=== PATIENT | male | born 1960 | race Caucasian/White ===

== ENCOUNTER 2017-07-21 08:13 | Day surgery (SDC) | payer BC ==
[~2017-07-21 08:13] MED LIST: Buffered Lidocaine 0.9% SYRIN* 5 ML/SYR SYRINGE INTRADERM ONE
[2017-07-21] MEDS ORDERED: Clindamycin 900 MG IVPREMIX(* 900 MG/50 ML SDV IV ONE (08:30)
[2017-07-21] MEDS ORDERED: Bupivacaine 0.25% SDV* 30 ML ONE (10:14)
[2017-07-21] MEDS ORDERED: fentaNYL* 50 MCG/ML 2 ML VIAL (100 MCG VIAL) ONE (10:31)
[2017-07-21] MEDS ORDERED: Midazolam* 1 MG/ML 2 ML VIAL (2 MG) ONE (10:31)
[2017-07-21] MEDS ORDERED: Lidocaine 0.5%* 50 ML SDV ONE (10:31)
[2017-07-21] MEDS ORDERED: Propofol* 10 MG/ML 20 ML BTL IV PUSH ONE (10:46)
[2017-07-21 12:09] VITALS: BP 114/80
--- NOTE | 2017-07-21 22:23 | OP ---
DATE OF OPERATION: 07/21/17 - [facility] DATE OF : 60 SURGEON: Dave Phillips MD WHEEL ASSEMBLER: TESSA Coon. An clerical administrative assistant was needed for the cyst removal portion of the procedure to aid in retraction. ANESTHESIOLOGIST: Jack Burnett MD ANESTHESIA: [place] block with MAC. PRE-OP DIAGNOSES: 1. Left carpal tunnel syndrome. 2. Left volar wrist ganglion cyst. POST-OP DIAGNOSES: 1. Left carpal tunnel syndrome. 2. Left volar wrist ganglion cyst. OPERATIVE PROCEDURE: 1. Left volar wrist ganglion cyst excision. 2. Left carpal tunnel release. INDICATIONS: Blu has a very large left volar wrist ganglion cyst. Additionally, he has had progressive carpal tunnel syndrome. We talked about risks and benefits. He wanted to proceed. ESTIMATED BLOOD LOSS: 5 mL. COMPLICATIONS: None. FINDINGS: A volar wrist ganglion was emanating from the volar wrist capsule, quite ulnar, just anterior to the radial ulnar joint. DESCRIPTION OF PROCEDURE: Blu was seen in the preoperative holding area. The correct site, side, and procedure were identified. We came back to the operating room. The [place] block was performed. The arm was prepped and draped in the usual fashion and a time-out was performed. I began by making a 2- to 3-cm incision in the standard location for an open carpal tunnel release. Dissection was carried down through the subcutaneous tissue and palmar fascia. The transverse carpal ligament was released just off the radial aspect of the hook of the [place]. The release was completed distally and proximally released the subcutaneous tissue. The fascia retracted distally and ulnarly with a Gerhard retractor. Then, under direct visualization, the remainder of the transverse carpal ligament was released to the level several centimeters proximal to wrist flexion crease. I tried the decompression. Everything was very nicely decompressed. We irrigated out the wound. Skin was closed with 3-0 Monocryl suture. I then made a separate curvilinear incision over the volar wrist ganglion cyst. The dissection was carried down. The cyst was identified. I came proximal and identified the radial artery prior to it running adjacent to the cyst. I delineated the margin of the cyst and dissected out the radial artery and retracted this radially. The radial artery was protected throughout the case. I then was able to track the cyst back down to the radial carpal joint. It came deep to the tendons all the way back ulnar, it came off really the ulnar side of the radial carpal joint. I tracked all this back down, I amputated the cyst at its stalk where it came off the joint. The volar wrist capsule was cauterized. Cyst was handed off as a specimen. I then irrigated out the wound. Hemostasis was obtained with the Bovie. The wound was closed with 3-0 Monocryl sutures and Steri-Strips. Wounds were dressed with 4x4's, sterile Webril, and a volar cockup wrist splint was applied. Tourniquet was deflated and the hand pinked up immediately. He was then taken to the recovery room in stable condition. [id number]/CPS #: [id number] STEPHANIE
== END 2017-07-21 12:45 | disposition home or self-care (01) ==
LOC: OREAST 08:13
PROVIDERS: ATTEND Orthopaedic Surgery Hand Surgery
DX: M67.432 Ganglion, left wrist (principal); G56.02 Carpal tunnel syndrome, left upper limb; E11.9 Type 2 diabetes mellitus without complications; Z79.84 Long term (current) use of oral hypoglycemic drugs; Z87.891 Personal history of nicotine dependence; I21.4 Non-ST elevation (NSTEMI) myocardial infarction; Z95.5 Presence of coronary angioplasty implant and graft; R06.02 Shortness of breath; R07.89 Other chest pain; I25.10 Atherosclerotic heart disease of native coronary artery without angina pectoris; E78.5 Hyperlipidemia, unspecified; M19.90 Unspecified osteoarthritis, unspecified site
CPT/HCPCS: 88304; J2250; J2704; J3010

== ENCOUNTER 2017-07-29 14:55 | Emergency (ER) | payer BC ==
[2017-07-29 18:34] LABS: Hematocrit 39 % (42-52); Hemoglobin 12.9 g/dl (14.0-18.0); Mean Corpuscular HGB Conc 33 g/dl (31-36); Mean Corpuscular Hemoglobin 29 pg (27-31); Mean Corpuscular Volume 87 fL (80-94); Mean Platelet Volume 8 um3 (7.4-10.4); Red Blood Count 4.51 10^6/ul (4.0-5.4); Red Cell Distribution Width 14 % (10.5-15); White Blood Count 11.9 10^3/ul (3.5-10.8)
[2017-07-29 18:53] LABS: Albumin 3.9 g/dL (3.2-5.2); BUN/Creatinine Ratio 27.9 (8-20); Calcium 9.5 mg/dL (8.6-10.3); EGFR African American 94.7 (>60); EGFR Non-African American 73.6 (>60); Potassium 4.4 mmol/L (3.5-5.0); Total Bilirubin 0.3 mg/dL (0.2-1.0); Total Protein 6.9 g/dL (6.4-8.9)
[2017-07-29] MEDS ORDERED: NS 0.9% 1000 ML* 1,000 ML IV ONE (19:34)
[2017-07-29 19:37] LABS: Urine Bacteria Absent (Absent)
[2017-07-29] MEDS ORDERED: Iodixanol* (CONTRAST) 320 MG/ML 100 ML SDV IV ONE (19:44)
--- NOTE | 2017-07-29 20:34 | RAD ---
CLINICAL HISTORY: Hematuria, right lower quadrant tenderness COMPARISON: None TECHNIQUE: Multiple contiguous axial CT scans were obtained of the abdomen and pelvis after the administration of intravenous contrast. Coronal and sagittal multiplanar reformations are submitted for review. Oral contrast was not administered. Delayed images were obtained through the abdomen and pelvis. FINDINGS: LUNG BASES: The lung bases are clear. LIVER: The liver is normal in shape, size, contour, and attenuation. BILE DUCTS: There is no intrahepatic or extrahepatic biliary dilatation. GALLBLADDER: The gallbladder is incompletely distended but is grossly normal. PANCREAS: The pancreas is normal, without mass or ductal dilatation. SPLEEN: Normal in size and appearance. UPPER GI TRACT: Evaluation of the gastrointestinal tract is limited by incomplete gastric distention. The upper GI tract is unremarkable. SMALL BOWEL AND MESENTERY: The small bowel is normal in contour, course, and caliber. There is no obstruction or dilatation. COLON: The colon is normal in contour, course, caliber. There is no pericolonic inflammatory change. There is a tubular, vermiform, hollow viscus that is blind ending, and originates from the cecum, consistent with a normal appendix. There is no periappendiceal inflammatory change. This is best seen on axial image 36 through 46. ADRENALS: There is a 2 cm right adrenal nodule measuring 80 Hounsfield units in attenuation. KIDNEYS: The kidneys are normal in shape, size, contour, and axis. There is no hydronephrosis or nephrolithiasis. BLADDER: There is large amount of high attenuation material within the lumen of the bladder. PELVIC ORGANS: The prostate is diffusely enlarged. The seminal vesicles are symmetric. AORTA: The aorta is normal. IVC: Unremarkable LYMPH NODES: There is no lymphadenopathy by size criteria. ABDOMINAL WALL: There is a small fat-containing of focal hernia. BONES AND SOFT TISSUES: Degenerative changes are noted OTHER: None IMPRESSION: 1. THERE IS HIGH ATTENUATION MATERIAL WITHIN THE LUMEN OF THE BLADDER, LIKELY REPRESENTING INTRALUMINAL THROMBUS WITHIN THE BLADDER GIVEN HISTORY OF HEMATURIA. 2. MILDLY ENLARGED PROSTATE. 3. 2 CM RIGHT ADRENAL NODULE. IMAGING FEATURES ARE INDETERMINATE. IN THE ABSENCE OF A HISTORY OF MALIGNANCY, RECOMMEND 12 MONTH FOLLOW-UP IMAGING WITH ADRENAL PROTOCOL MULTIPHASE CONTRAST ENHANCED CT OR ADRENAL PROTOCOL MRI OF THE ABDOMEN.
--- NOTE | 2017-07-29 21:52 | ED ---
Stephan Gregory Stephanie, scribed for Uli De La Cruz on 07/29/17 at 1952 . GI/ HPI - HPI Summary HPI Summary: The pt is a 57 y/o M presenting to the ED with c/o hematuria. He noticed a small amount of blood in his urine this morning and it has gotten progressively worse throughout the day. Symptoms include pain during urination. The pt denies fever and SOB. The pt reports being on blood thinners and baby aspirin. He reports an episode of hematuria 2 weeks ago. - History of Current Complaint Chief Complaint: EDUrogenitalProblems Time Seen by Provider: 07/29/17 19:17 Stated Complaint: BLOOD IN URINE/BLOOD THINNERS Hx Obtained From: Patient, Family/Digital Sales Director Onset/Duration: Started Hours Ago - Began this morning., Still Present Timing: Constant Pain Intensity: 2 Location of Pain: RLQ Associated Signs and Symptoms: Positive: Hematuria, Dysuria, Other: - Negative: SOB. Negative: Fever Aggravating Factor(s): Urination Alleviating Factor(s): Nothing - Additional Pertinent History Primary Care Physician: [id number] - Allergy/Home Medications Allergies/Adverse Reactions: Allergies Allergy/AdvReac Type Severity Reaction Status Date / Time Penicillins Allergy Hives Verified 07/21/17 08:40 PMH/Surg Hx/FS Hx/Imm Hx Previously Healthy: No Endocrine/Hematology History: Reports: Hx Diabetes Cardiovascular History: Reports: Hx Angina, Hx Coronary Artery Disease, Hx Hypercholesterolemia, Hx Myocardial Infarction, Other Cardiovascular Problems/ Disorders - STENTS Denies: Hx Hypertension, Hx Pacemaker/ICD, Hx Valvular Heart Disease Respiratory History: Denies: Hx Asthma, Hx Chronic Obstructive Pulmonary Disease (COPD), Hx Pneumonia GI History: Reports: Hx Gastroesophageal Reflux Disease - WITH SPICY FOODS History: Reports: Other Problems/Disorders - HEMATURIA Denies: Hx Renal Disease Musculoskeletal History: Reports: Hx Arthritis - OSTEOARTHRITIS, Hx Back Problems - lower back pain, Hx Osteoporosis Sensory History: Reports: Hx Contacts or Glasses - GLASSES BRING DAY OF SURGERY Denies: Hx Hearing Aid Opthamlomology History: Reports: Hx Contacts or Glasses - GLASSES BRING DAY OF SURGERY Psychiatric History: Reports: Hx Depression - OCASSIONALLY Denies: Hx Panic Disorder - Surgical History Surgery Procedure, Year, and Place: CARDIAC STENTS 2016 Hx Anesthesia Reactions: No - Immunization History Date of Tetanus Vaccine: UTD Date of Influenza Vaccine: NO Infectious Disease History: No Infectious Disease History: Denies: Hx of Known/Suspected MRSA, Hx Shingles, Hx Tuberculosis, History Other Infectious Disease, Traveled Outside the [place] in Last 30 Days - Social History Alcohol Use: Rare Alcohol Amount: GLASS OF WINE Hx Substance Use: No Substance Use Type: Reports: None Hx Tobacco Use: Yes Smoking Status (MU): Former Smoker Type: Cigarettes Amount Used/How Often: 1PPD Have You Smoked in the Last Year: No Review of Systems Negative: Fever Negative: Shortness Of Breath Positive: Abdominal Pain Positive: dysuria, hematuria All Other Systems Reviewed And Are Negative: Yes Physical Exam - Summary Physical Exam Summary: Appearance: Well appearing, no pain distress Skin: warm, dry, reflects adequate perfusion Head/face: normal Eyes: EOMI, NILE ENT: normal Neck: supple, non-tender Respiratory: CTA, breath sounds present Cardiovascular: RRR, pulses symmetrical Abdomen: mild tenderness in RLQ. Gross hematuria. Bowel: present Musculoskeletal: normal, strength/ROM intact Neuro: normal, sensory motor intact, A&Ox3 Triage Information Reviewed: Yes Vital Signs On Initial Exam: Initial Vitals Temp Pulse Resp BP Pulse Ox 97.4 F 74 19 124/85 99 07/29/17 14:57 07/29/17 14:57 07/29/17 14:57 07/29/17 14:57 07/29/17 14:57 Vital Signs Reviewed: Yes - [place] Coma Scale Coma Scale Total: 15 Diagnostics - Vital Signs Vital Signs Temp Pulse Resp BP Pulse Ox 07/29/17 14:57 97.4 F 74 19 124/85 99 - Laboratory Lab Results: Lab Results 07/29/17 07/29/17 07/29/17 Range/Units 18:25 18:25 18:25 WBC 11.9 H (3.5-10.8) 10^3/ul RBC 4.51 (4.0-5.4) 10^6/ul Hgb 12.9 L (14.0-18.0) g/dl Hct 39 L (42-52) % MCV 87 (80-94) fL MCH 29 (27-31) pg MCHC 33 (31-36) g/dl RDW 14 (10.5-15) % Plt Count 257 (150-450) 10^3/ul MPV 8 (7.4-10.4) um3 Neut % (Auto) 64.4 (38-83) % Lymph % (Auto) 25.9 (25-47) % [place] % (Auto) 7.4 (1-9) % Eos % (Auto) 1.6 (0-6) % Baso % (Auto) 0.7 (0-2) % Absolute Neuts (auto) 7.6 (1.5-7.7) 10^3/ul Absolute Lymphs (auto) 3.1 (1.0-4.8) 10^3/ul Absolute Monos (auto) 0.9 H (0-0.8) 10^3/ul Absolute Eos (auto) 0.2 (0-0.6) 10^3/ul Absolute Basos (auto) 0.1 (0-0.2) 10^3/ul Absolute Nucleated RBC 0.01 10^3/ul Nucleated RBC % 0.1 INR (Anticoag Therapy) 0.85 (0.77-1.02) APTT 30.7 (26.0-36.3) seconds Sodium 136 (133-145) mmol/L Potassium 4.4 (3.5-5.0) mmol/L Chloride 102 (101-111) mmol/L Carbon Dioxide 27 (22-32) mmol/L Anion Gap 7 (2-11) mmol/L BUN 29 H (6-24) mg/dL Creatinine 1.04 (0.67-1.17) mg/dL Est GFR ( Amer) 94.7 (>60) Est GFR (Non-Af Amer) 73.6 (>60) BUN/Creatinine Ratio 27.9 H (8-20) Glucose 214 H (70-100) mg/dL Calcium 9.5 (8.6-10.3) mg/dL Total Bilirubin 0.30 (0.2-1.0) mg/dL AST 23 (13-39) U/L ALT 40 (7-52) U/L Alkaline Phosphatase 76 (34-104) U/L Total Protein 6.9 (6.4-8.9) g/dL Albumin 3.9 (3.2-5.2) g/dL Globulin 3.0 (2-4) g/dL Albumin/Globulin Ratio 1.3 (1-3) Urine Color Urine Appearance Urine pH Ur Specific [place] Urine Protein Urine Ketones Urine Blood Urine Nitrate Urine Bilirubin Urine Urobilinogen Ur Leukocyte Esterase Urine WBC (Auto) (Absent) Urine RBC (Auto) (Absent) Urine Bacteria (Absent) Urine Glucose Urine Ascorbic Acid 07/29/17 Range/Units 19:20 WBC (3.5-10.8) 10^3/ul RBC (4.0-5.4) 10^6/ul Hgb (14.0-18.0) g/dl Hct (42-52) % MCV (80-94) fL MCH (27-31) pg MCHC (31-36) g/dl RDW (10.5-15) % Plt Count (150-450) 10^3/ul MPV (7.4-10.4) um3 Neut % (Auto) (38-83) % Lymph % (Auto) (25-47) % [place] % (Auto) (1-9) % Eos % (Auto) (0-6) % Baso % (Auto) (0-2) % Absolute Neuts (auto) (1.5-7.7) 10^3/ul Absolute Lymphs (auto) (1.0-4.8) 10^3/ul Absolute Monos (auto) (0-0.8) 10^3/ul Absolute Eos (auto) (0-0.6) 10^3/ul Absolute Basos (auto) (0-0.2) 10^3/ul Absolute Nucleated RBC 10^3/ul Nucleated RBC % INR (Anticoag Therapy) (0.77-1.02) APTT (26.0-36.3) seconds Sodium (133-145) mmol/L Potassium (3.5-5.0) mmol/L Chloride (101-111) mmol/L Carbon Dioxide (22-32) mmol/L Anion Gap (2-11) mmol/L BUN (6-24) mg/dL Creatinine (0.67-1.17) mg/dL Est GFR ( Amer) (>60) Est GFR (Non-Af Amer) (>60) BUN/Creatinine Ratio (8-20) Glucose (70-100) mg/dL Calcium (8.6-10.3) mg/dL Total Bilirubin (0.2-1.0) mg/dL AST (13-39) U/L ALT (7-52) U/L Alkaline Phosphatase (34-104) U/L Total Protein (6.4-8.9) g/dL Albumin (3.2-5.2) g/dL Globulin (2-4) g/dL Albumin/Globulin Ratio (1-3) Urine Color Red A Urine Appearance Turbid Urine pH TNP Ur Specific [place] TNP Urine Protein TNP Urine Ketones TNP Urine Blood TNP Urine Nitrate TNP Urine Bilirubin TNP Urine Urobilinogen TNP Ur Leukocyte Esterase TNP Urine WBC (Auto) Trace(0-5/hpf) (Absent) Urine RBC (Auto) 3+(>10/hpf) H (Absent) Urine Bacteria Absent (Absent) Urine Glucose TNP Urine Ascorbic Acid TNP Result Diagrams: 07/29/17 18:25 07/29/17 18:25 Lab Statement: Any lab studies that have been ordered have been reviewed, and results considered in the medical decision making process. - CT ABD/PELVIS CT Interpretation: Positive (See Comments) - 1. THERE IS HIGH ATTENUATION MATERIAL WITHIN THE LUMEN OF THE BLADDER, LIKELY REPRESENTING INTRALUMINAL THROMBUS WITHIN THE BLADDER GIVEN HISTORY OF HEMATURIA. 2. MILDLY ENLARGED PROSTATE. 3. 2 CM RIGHT ADRENAL NODULE. IMAGING FEATURES ARE INDETERMINATE. IN THE ABSENCE OF A HISTORY OF MALIGNANCY, RECOMMEND 12 MONTH FOLLOW-UP IMAGING WITH ADRENAL PROTOCOL MULTIPHASE CONTRAST ENHANCED CT OR ADRENAL PROTOCOL MRI OF THE ABDOMEN. CT Interpretation Completed By: Ailyn GUZMAN Course/Dx - Course Course Of Treatment: The pt is a 57 y/o M presenting to the ED with c/o hematuria. Symptoms include pain during urination. The pt reports being on blood thinners and baby aspirin. He reports an episode of hematuria 2 weeks ago. Pt will be transfered to [facility] due to no urologist available [place] [facility] [place] The pt is diagnosed with gross hematuria. - Diagnoses Differential Diagnoses - Male: Diverticulitis, Pyelonephritis, Renal Calculi, Renal Colic, Urinary Tract Infection Provider Diagnoses: Gross hematuria - Physician Notifications Instructed by Provider To: Transfer Reason For Transfer: Specialty available [place] [facility] [place] therapy techn[place]. Discharge - Discharge Plan Condition: Fair Disposition: TRANSFER TO [facility] ([facility]) Discharge Disposition Comment: Pt will be transfered to [facility]. Referrals: Marlyn Chilel MD [Primary Care Provider] - The documentation as recorded by the scribe, Stephan,Shira accurately reflects the service I personally performed and the decisions made by me, Uli De La Cruz.
[2017-07-29 22:04] VITALS: BP 124/72
--- OUTSIDE RECORDS SUMMARY | 2017-08-01 09:25 | XMS REPORT | Clinical Summary ---
:1960 Author Organization [place] [facility] Address [address] [place] [address] Phone Allergies, Adverse Reactions, Alerts Allergy Name Reaction Description Start Date Severity Status Provider PENICILLIN rash Critical Active KAYLA HURLEY MD Conditions or Problems Problem Name Problem Onset Status Entry Provider Comment Standard Annotate Code Date Date Description Overweight 278.02 Active ROLANDA Overweight 04/17 04/17 BRITTANIE MARI HEAD CORRECTION OFFICER Osteopenia 733.90 Active ROLANDA Disorder of bone 05/13 05/13 BRITTANIE MARI and cartilage, HEAD CORRECTION OFFICER unspecified Hyperlipidemia 272.2 Active KAYLA Mixed mixed 10/19 JUSTEN hyperlipidemia MEI KUO Low back pain, 724.2 Active KAYLA Lumbago chronic 09/15 09/16 JUSTEN HURLEY MD Hyperglycemia 250.00 Active Mela Stone 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 09/02 09/02 PROCEDURE TECH mellitus without mellitus, type mention of II complication, type II or unspecified type, not stated as uncontrolled Other specified 716.96 Active KAYLA Arthropathy arthritis, 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 JUSTEN unspecified, knee MEI KUO involving lower leg Hematuria, gross 599.7 Active KAYLA Hematuria 04/30 09/08 JUSTEN HURLEY MD CAD 414.00 Active KAYLA Coronary 10/19 10/19 JUSTEN atherosclerosis MEI KUO of unspecified type of vessel, [place] or graft Ganglion cyst of 727.41 Active KAYLA Ganglion of left wrist JUSTEN joint MEI KUO Biceps 726.12 Active KAYLA Bicipital tendinitis, JUSTEN tenosynovitis bilateral MEI KUO Medication List Medication Instructions Start Stop Generic Name NDC Status Provider Patient Date Date Instruction IBUPROFEN 800 1 by mouth IBUPROFEN 12246869 Active KAYLA MG ORAL every 8 hours 04/17 540 JUSTEN TABLET as needed MEI KUO HYDROCODONE-A 1 - 2 By HYDROCODONE- 02421758 Active KAYLA CETAMINOPHEN Mouth every 4 04/17 ACETAMINOPHE 301 JUSTEN 5-325 MG ORAL - 6 hours as N MEI KUO TABLET needed for pain MDD: 6 CALCIUM 600+D 1 By Mouth CALCIUM 87188644 Active KAYLA 600-400 Twice a Day 05/13 CARBONATE- 722 JUSTEN MG-UNIT ORAL TAMIN D MEI KUO TABLET GLUCOMETER Check am and GLUCOMETER Active KAYLA as needed Dx 10/01 JUSTEN type 2 MEI KUO diabetes LANCETS Use am and as LANCETS 98377977 Active KAYLA needed Dx 10/01 912 JUSTEN Type 2 DM MEI KUO TEST STRIPS Use am and as TEST STRIPS Active KAYLA needed Dx 10/01 JUSTEN Type 2 DM MEI KUO ATORVASTATIN 1 by mouth at ATORVASTATIN 38158592 Active KAYLA CALCIUM 80 MG bedtime 04/30 CALCIUM 798 JUSTEN ORAL TABLET MEI KUO METOPROLOL 1 tab qd METOPROLOL 68620844 Active KAYLA SUCCINATE ER 04/30 SUCCINATE 501 JUSTEN 50 MG ORAL MEI KUO TABLET EXTENDED RELEASE 24 HOUR NITROSTAT 0.4 1 tab every 5 NITROGLYCERI 40168660 Active KAYLA MG SUBLINGUAL mins as 04/30 N 813 JUSTEN TABLET needed MEI KUO SUBLINGUAL EFFIENT 10 MG 1 tab qd PRASUGREL 00628977 Active KAYLA ORAL TABLET 04/30 HCL 330 JUSTEN HURLEY MD LISINOPRIL 10 1 by mouth LISINOPRIL 83179666 Active KAYLA MG ORAL every day 02/03 701 JUSTEN TABLET MEI KUO GLIPIZIDE ER TAKE 1 TABLET GLIPIZIDE 82708475 Active KAYLA 5 MG ORAL BY MOUTH 04/12 201 JUSTEN TABLET DAILY MEI KUO EXTENDED RELEASE 24 HOUR METFORMIN HCL TAKE 1 TABLET METFORMIN 60257038 Active KAYLA 1000 MG ORAL BY MOUTH 04/15 HCL 705 JUSTEN TABLET TWICE DAILY MEI KUO ASPIRIN ADULT TAKE 1 TABLET ASPIRIN 24547810 Active KAYLA LOW DOSE 81 BY MOUTH 04/25 501 JUSTEN MG ORAL EVERY DAY MEI KUO TABLET DELAYED RELEASE LISINOPRIL TAKE 1 TABLET LISINOPRIL 14947334 Active KAYLA 2.5 MG ORAL BY MOUTH 04/25 760 JUSTEN TABLET EVERY DAY MEI KUO Immunizations Vaccine Administration Date Value Standard Description DTaP (Diphtheria, Tetanus, and given diphtheria, tetanus toxoids acellular Pertussis) and acellular pertussis immunization #1 vaccine Vital Signs Date Name Value Unit Range Description blood pressure, diastolic 83 mm[Hg] BP thompson blood pressure, systolic 127 mm[Hg] BP sys height E&M 68.50 [in_us] Bdy height pulse rate E&M 64 /min Heart rate respiratory rate E&M 18 /min Resp rate temperature E&M 98.3 [degF] Body temperature weight E&M 184 [lb_av] Weight Measured blood pressure, diastolic 80 mm[Hg] BP thompson blood pressure, systolic 132 mm[Hg] BP sys height E&M 66.50 [in_us] Bdy height pulse rate E&M 66 /min Heart rate respiratory rate E&M 18 /min Resp rate temperature E&M 98.2 [degF] Body temperature weight E&M 180 [lb_av] Weight Measured blood pressure, diastolic 80 mm[Hg] BP thompson blood pressure, systolic 123 mm[Hg] BP sys height E&M 66.50 [in_us] Bdy height pulse rate E&M 68 /min Heart rate respiratory rate E&M 18 /min Resp rate temperature E&M 97.6 [degF] Body temperature weight E&M 182 [lb_av] Weight Measured Diagnostic Results Date Name Value Unit Range Description Lab Report: COMPREHENSIVE METABOLIC PANEL - Chemistry blood glucose, random 154 mg/dL 74-106 urea nitrogen, blood 22 mg/dL 7-18 creatinine, serum 0.9 mg/dL 0.6-1.3 Estimated Glomerular Filtration >60 mL/min mL/min/1.73m2 > 60 Rate (calc) Glomerular Filtration rate >60 mL/min >60 [place] urea nitrogen/creatinine ratio, 24.4 ratio serum sodium, serum 137 mmol/L 086-174 6779/10/19 potassium, serum 4.9 mmol/L 3.5-5.1 chloride, serum 103 mmol/L 98-107 carbon dioxide, venous blood 26 mmol/L 21-32 anion gap, serum 8 mEq/L 8-16 calcium, serum 8.9 mg/dL 8.5-10.1 protein, total, serum 7.7 g/dL 6.4-8.2 albumin, serum 4.1 g/dL 3.4-5.0 globulins, serum, total 3.6 g/dL 1.9-4.3 albumin/globulin ratio, serum 1.1 ratio bilirubin, serum, total 0.3 mg/dL 0.2-1.0 aspartate aminotransferase (SGOT), 20 U/L 15-37 serum alanine aminotransferase (SGPT), 37 U/L 12-78 serum cholesterol, serum 120 mg/dL <200 triglyceride, serum, fasting 146 mg/dL <150 HDL cholesterol, serum 49 mg/dL >40 LDL cholesterol, serum 42 mg/dL < 100 Lab Report: COMPREHENSIVE METABOLIC PANEL, LDL CHOLESTEROL PROFILE, GLYC ... - Chemistry blood glucose, random 129 mg/dL 74-106 urea nitrogen, blood 19 mg/dL 7-18 creatinine, serum 0.9 mg/dL 0.6-1.3 Estimated Glomerular Filtration >60 mL/min mL/min/1.73m2 > 60 Rate (calc) Glomerular Filtration rate >60 mL/min >60 [place] urea nitrogen/creatinine ratio, 21.1 ratio serum sodium, serum 141 mmol/L 327-333 3863/06/22 potassium, serum 4.9 mmol/L 3.5-5.1 chloride, serum 104 mmol/L 98-107 carbon dioxide, venous blood 32 mmol/L 21-32 anion gap, serum 5 mEq/L 8-16 calcium, serum 9.0 mg/dL 8.5-10.1 protein, total, serum 7.9 g/dL 6.4-8.2 albumin, serum 4.2 g/dL 3.4-5.0 globulins, serum, total 3.7 g/dL 1.9-4.3 albumin/globulin ratio, serum 1.1 ratio aspartate aminotransferase (SGOT), 22 U/L 15-37 serum alanine aminotransferase (SGPT), 38 U/L 12-78 serum cholesterol, serum 127 mg/dL <200 triglyceride, serum, fasting 92 mg/dL <150 HDL cholesterol, serum 49 mg/dL >40 LDL cholesterol, serum 60 mg/dL < 100 hemoglobin A1C, blood, as % of 7.2 % 4.2-6.3 total hemoglobin Estimated Average Glucose 160 mg/dL Lab Report: GLYCOHEMOGLOBIN A1C - Chemistry hemoglobin A1C, blood, as % of total hemoglobin 7.3 % 4.2-6.3 Estimated Average Glucose 163 mg/dL Lab Report: GLYCOHEMOGLOBIN A1C, COMPREHENSIVE METABOLIC PANEL, LDL CHOL ... - Chemistry hemoglobin A1C, blood, as % of 7.6 % 4.2-6.3 total hemoglobin Estimated Average Glucose 171 mg/dL blood glucose, random 151 mg/dL 74-106 urea nitrogen, blood 19 mg/dL 7-18 creatinine, serum 0.9 mg/dL 0.6-1.3 Estimated Glomerular Filtration >60 mL/min mL/min/1.73m2 > 60 Rate (calc) Glomerular Filtration rate >60 mL/min >60 [place] urea nitrogen/creatinine ratio, 21.1 ratio serum sodium, serum 141 mmol/L 320-776 5684/03/07 potassium, serum 4.5 mmol/L 3.5-5.1 chloride, serum 106 mmol/L 98-107 carbon dioxide, venous blood 28 mmol/L 21-32 anion gap, serum 7 mEq/L 8-16 calcium, serum 8.5 mg/dL 8.5-10.1 protein, total, serum 7.7 g/dL 6.4-8.2 albumin, serum 4.1 g/dL 3.4-5.0 globulins, serum, total 3.6 g/dL 1.9-4.3 albumin/globulin ratio, serum 1.1 ratio aspartate aminotransferase (SGOT), 19 U/L 15-37 serum alanine aminotransferase (SGPT), 37 U/L 12-78 serum cholesterol, serum 128 mg/dL <200 triglyceride, serum, fasting 113 mg/dL <150 HDL cholesterol, serum 46 mg/dL >40 LDL cholesterol, serum 59 mg/dL < 100 Lab Report: MICROALBUMIN,RANDOM URINE - Urinalysis microalbumin/total urine volume 124.0 mg/L < 20.0 Encounters Code Encounter Date Provider Facility CPT-49739 Ofc Vst, Est Level III [facility] 13:01:29 EDT CPT-48300 Ofc Vst, Est Level III [facility] 10:23:32 EDT CPT-98701 Ofc Vst, Est Level III [facility] 10:34:08 EST CPT-20100 Ofc Vst, Est Level III [facility] 11:49:44 EST CPT-53525 Ofc Vst, Est Level III [facility] 13:49:23 EDT CPT-05797 Ofc Vst, Est Level III [facility] 10:49:23 EDT CPT-40004 Ofc Vst, Est Level III [facility] 10:01:18 EDT CPT-26382 Ofc Vst, Est Level III [facility] 15:01:52 EST CPT-12254 Ofc Vst, Est Level III [facility] 11:14:31 EST CPT-60744 Ofc Vst, Est Level III [facility] 11:51:18 EST CPT-61917 Ofc Vst, Est Level III [facility] 15:57:42 EST CPT-78734 Ofc Vst, Est Level III [facility] 16:31:34 EDT CPT-50072 Ofc Vst, New Level III ROLANDA GUERRA [facility] 13:17:51 EDT Procedures Code Procedure Name Date Entry Date Standard Description CPT-88380 Venipuncture 11:37:22 EDT CPT-67152 Venipuncture 12:52:56 EDT CPT-57837 Venipuncture 11:49:42 EST CPT-66068 Venipuncture 10:49:22 EDT CPT-64386 Venipuncture 12:32:20 EDT CPT-51728 Venipuncture 20:26:49 EST
--- OUTSIDE RECORDS SUMMARY | 2017-08-01 09:25 | XMS REPORT | Clinical Summary ---
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 unspecified Hyperlipidemia 272.2 Active KAYLA Mixed mixed 10/19 JUSTEN hyperlipidemia MEI KUO Low back pain, 724.2 Active KAYLA Lumbago chronic 09/15 09/16 JUSTEN HURLEY MD Hyperglycemia 250.00 Active Mela Stone 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 09/02 09/02 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 mellitus without mellitus, type mention of II complication, type II or unspecified type, not stated as uncontrolled Other specified 716.96 Active KAYLA Arthropathy arthritis, 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 JUSTEN unspecified, knee MEI KUO involving lower leg Hematuria, gross 599.7 Active KAYLA Hematuria 04/30 09/08 JUSTEN HURLEY MD CAD 414.00 Active KAYLA Coronary 10/19 10/19 JUSTEN atherosclerosis MEI KUO of unspecified type of vessel, [place] or graft Ganglion cyst of 727.41 Active KAYLA Ganglion of left wrist JUSTEN joint MEI KUO Biceps 726.12 Active KAYLA Bicipital tendinitis, JUSTEN tenosynovitis bilateral MEI KUO Medication List Medication Instructions Start Stop Generic Name NDC Status Provider Patient Date Date Instruction IBUPROFEN 800 1 by mouth IBUPROFEN 30164320 Active KAYLA MG ORAL every 8 hours 04/17 540 JUSTEN TABLET as needed MEI KUO HYDROCODONE-A 1 - 2 By HYDROCODONE- 93778983 Active KAYLA CETAMINOPHEN Mouth every 4 04/17 ACETAMINOPHE 301 JUSTEN 5-325 MG ORAL - 6 hours as N MEI KUO TABLET needed for pain MDD: 6 CALCIUM 600+D 1 By Mouth CALCIUM 37854921 Active KAYLA 600-400 Twice a Day 05/13 CARBONATE- 722 JUSTEN MG-UNIT ORAL TAMIN D MEI KUO TABLET GLUCOMETER Check am and GLUCOMETER Active KAYLA as needed Dx 10/01 JUSTEN type 2 MEI KUO diabetes LANCETS Use am and as LANCETS 10396236 Active KAYLA needed Dx 10/01 912 JUSTEN Type 2 DM MEI KUO TEST STRIPS Use am and as TEST STRIPS Active KAYLA needed Dx 10/01 JUSTEN Type 2 DM MEI KUO ATORVASTATIN 1 by mouth at ATORVASTATIN 44231298 Active KAYLA CALCIUM 80 MG bedtime 04/30 CALCIUM 798 JUSTEN ORAL TABLET MEI KUO METOPROLOL 1 tab qd METOPROLOL 13489481 Active KAYLA SUCCINATE ER 04/30 SUCCINATE 501 JUSTEN 50 MG ORAL MEI KUO TABLET EXTENDED RELEASE 24 HOUR NITROSTAT 0.4 1 tab every 5 NITROGLYCERI 91300783 Active KAYLA MG SUBLINGUAL mins as 04/30 N 813 JUSTEN TABLET needed MEI KUO SUBLINGUAL EFFIENT 10 MG 1 tab qd PRASUGREL 31656611 Active KAYLA ORAL TABLET 04/30 HCL 330 JUSTEN HURLEY MD LISINOPRIL 10 1 by mouth LISINOPRIL 58128415 Active KAYLA MG ORAL every day 02/03 701 JUSTEN TABLET MEI KUO GLIPIZIDE ER TAKE 1 TABLET GLIPIZIDE 72256150 Active KAYLA 5 MG ORAL BY MOUTH 04/12 201 JUSTEN TABLET DAILY MEI KUO EXTENDED RELEASE 24 HOUR METFORMIN HCL TAKE 1 TABLET METFORMIN 11204411 Active KAYLA 1000 MG ORAL BY MOUTH 04/15 HCL 705 JUSTEN TABLET TWICE DAILY MEI KUO ASPIRIN ADULT TAKE 1 TABLET ASPIRIN 37339484 Active KAYLA LOW DOSE 81 BY MOUTH 04/25 501 JUSTEN MG ORAL EVERY DAY MEI KUO TABLET DELAYED RELEASE LISINOPRIL TAKE 1 TABLET LISINOPRIL 55515932 Active KAYLA 2.5 MG ORAL BY MOUTH [...] Name Value Unit Range Description Lab Report: CBC Auto Diff, INR, Activated Partial Thrombo Time, Comprehe ... - Chemistry sodium, serum 136 mmol/L 990-494 4299/12/15 potassium, serum 4.4 mmol/L 3.5-5.0 chloride, serum 102 mmol/L 003-315 9741/12/15 carbon dioxide, venous blood 27 mmol/L 22-32 anion gap, serum 7 mmol/L 2-11 blood glucose, random 214 mg/dL 70-100 urea nitrogen, blood 29 mg/dL 6-24 creatinine, serum 1.04 mg/dL 0.67-1.17 urea nitrogen/creatinine ratio, serum 27.9 8-20 calcium, serum 9.5 mg/dL 8.6-10.3 protein, total, serum 6.9 g/dL 6.4-8.9 albumin, serum 3.9 g/dL 3.2-5.2 globulin, serum 3.0 2-4 albumin/globulin ratio, serum 1.3 1-3 bilirubin, serum, total 0.30 mg/dL 0.2-1.0 alkaline phosphatase, serum 76 U/L 34-104 alanine aminotransferase (SGPT), serum 40 U/L 7-52 aspartate aminotransferase (SGOT), 23 U/L 13-39 serum Estimated Glomerular Filtration Rate 73.6 (?) mL/min/1.73m2 > 60 (calc) Lab Report: CBC Auto Diff, INR, Activated Partial Thrombo Time, Comprehe ... - Coagulation international normalized ratio (INR) 0.85 0.77-1.02 Lab Report: CBC Auto Diff, INR, Activated Partial Thrombo Time, Comprehe ... - Genetics/fertility eGFR if 94.7 (?) mL/min/1.73m2 >60 Lab Report: CBC Auto Diff, INR, Activated Partial Thrombo Time, Comprehe ... - Hematology leukocyte count, blood 11.9 10 3/UL 10*3/mm3 3.5-10.8 erythrocyte (RBC) count 4.51 10 6/UL 10*6/mm3 4.0-5.4 hemoglobin, blood 12.9 g/dL 14.0-18.0 hematocrit, blood 39 % 42-52 mean corpuscular volume, RBC 87 fL 80-94 mean corpuscular hemoglobin, RBC 29 pg 27-31 mean corpuscular hemoglobin 33 G/DL % 31-36 concentration, RBC red blood cell distribution width 14 % 10.5-15 platelet count 257 10 3/UL 10*3/mm3 425-052 3582/12/15 mean platelet volume 8 UM3 fL 7.4-10.4 Lab Report: COMPREHENSIVE METABOLIC PANEL - Chemistry blood glucose, random 154 mg/dL 74-106 urea nitrogen, blood 22 mg/dL 7-18 creatinine, serum 0.9 mg/dL 0.6-1.3 Estimated Glomerular Filtration >60 mL/min mL/min/1.73m2 > 60 Rate (calc) Glomerular Filtration rate >60 mL/min >60 [place] urea nitrogen/creatinine ratio, 24.4 ratio serum sodium, serum 137 mmol/L 535-276 4970/10/19 potassium, serum 4.9 mmol/L 3.5-5.1 chloride, serum [...] (calc) Glomerular Filtration rate >60 mL/min >60 [place] urea nitrogen/creatinine ratio, 21.1 ratio serum sodium, serum 141 mmol/L 624-449 5321/06/22 potassium, serum 4.9 mmol/L 3.5-5.1 chloride, serum [...] (calc) Glomerular Filtration rate >60 mL/min >60 [place] urea nitrogen/creatinine ratio, 21.1 ratio serum sodium, serum 141 mmol/L 442-538 3881/03/07 potassium, serum 4.5 mmol/L 3.5-5.1 chloride, serum [...] 20.0 Encounters Code Encounter Date Provider Facility CPT-95349 Ofc Vst, Est Level III KAYLA HURLEY [facility] 13:01:29 EDT CPT-50707 Ofc Vst, Est Level III KAYLA HURLEY [facility] 10:23:32 EDT CPT-90270 Ofc Vst, Est Level III KAYLA HURLEY [facility] 10:34:08 EST CPT-86643 Ofc Vst, Est Level III KAYLA HURLEY [facility] 11:49:44 EST CPT-20511 Ofc Vst, Est Level III KAYLA HURLEY [facility] 13:49:23 EDT CPT-07573 Ofc Vst, Est Level III KAYLA HURLEY [facility] 10:49:23 EDT CPT-07994 Ofc Vst, Est Level III KAYLA HURLEY [facility] 10:01:18 EDT CPT-99582 Ofc Vst, Est Level III KAYLA HURLEY [facility] 15:01:52 EST CPT-42814 Ofc Vst, Est Level III KAYLA HURLEY [facility] 11:14:31 EST CPT-06698 Ofc Vst, Est Level III [facility] 11:51:18 EST CPT-79533 [facility], [facility] 15:57:42 EST CPT-86659 Ofc Vst, Est Level III [facility] 16:31:34 EDT CPT-70455 Ofc Vst, New Level III ROLANDA GUERRA [facility] 13:17:51 EDT Procedures Code Procedure Name Date Entry Date Standard Description CPT-33007 Venipuncture 11:37:22 EDT CPT-78506 Venipuncture 12:52:56 EDT CPT-93277 Venipuncture 11:49:42 EST CPT-18725 Venipuncture 10:49:22 EDT CPT-01039 Venipuncture 12:32:20 EDT CPT-09578 Venipuncture 20:26:49 EST
--- OUTSIDE RECORDS SUMMARY | 2017-08-01 09:25 | XMS REPORT | Clinical Summary ---
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 Hyperlipidemia 272.2 Active KAYLA Mixed mixed 10/19 JUSTEN hyperlipidemia MEI KUO Low back pain, 724.2 Active KAYLA Lumbago chronic 09/15 09/16 JUSTEN HURLEY MD Hyperglycemia 250.00 Active Mela Stone 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 09/02 09/[address] MAGISTRATE mellitus without mellitus, type mention of II complication, type II or unspecified type, not stated as uncontrolled Other specified 716.96 Active KAYLA Arthropathy arthritis, 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 JUSTEN unspecified, knee MEI KUO involving lower leg Hematuria, gross 599.7 Active KAYLA Hematuria 04/30 09/08 JUSTEN HURLEY MD CAD 414.00 Active KAYLA Coronary 10/19 10/19 JUSTEN atherosclerosis MEI KUO of unspecified type of vessel, [place] or graft Ganglion cyst of 727.41 Active KAYLA Ganglion of left wrist JUSTEN joint MEI KUO Biceps 726.12 Active KAYLA Bicipital tendinitis, JUSTEN tenosynovitis bilateral MEI KUO Medication List Medication Instructions Start Stop Generic Name NDC Status Provider Patient Date Date Instruction IBUPROFEN 800 1 by mouth IBUPROFEN 84255716 Active KAYLA MG ORAL every 8 hours 04/17 540 JUSTEN TABLET as needed MEI KUO HYDROCODONE-A 1 - 2 By HYDROCODONE- 41098396 Active KAYLA CETAMINOPHEN Mouth every 4 04/17 ACETAMINOPHE 301 JUSTEN 5-325 MG ORAL - 6 hours as N MEI KUO TABLET needed for pain MDD: 6 CALCIUM 600+D 1 By Mouth CALCIUM 11978094 Active KAYLA 600-400 Twice a Day 05/13 CARBONATE- 722 JUSTEN MG-UNIT ORAL TAMIN D MEI KUO TABLET GLUCOMETER Check am and GLUCOMETER Active KAYLA as needed Dx 10/01 JUSTEN type 2 MEI KUO diabetes LANCETS Use am and as LANCETS 50336126 Active KAYLA needed Dx 10/01 912 JUSTEN Type 2 DM MEI KUO TEST STRIPS Use am and as TEST STRIPS Active KAYLA needed Dx 10/01 JUSTEN Type 2 DM MEI KUO ATORVASTATIN 1 by mouth at ATORVASTATIN 03086213 Active KAYLA CALCIUM 80 MG bedtime 04/30 CALCIUM 798 JUSTEN ORAL TABLET MEI KUO METOPROLOL 1 tab qd METOPROLOL 76585779 Active KAYLA SUCCINATE ER 04/30 SUCCINATE 501 JUSTEN 50 MG ORAL MEI KUO TABLET EXTENDED RELEASE 24 HOUR NITROSTAT 0.4 1 tab every 5 NITROGLYCERI 88735224 Active KAYLA MG SUBLINGUAL mins as 04/30 N 813 JUSTEN TABLET needed MEI KUO SUBLINGUAL EFFIENT 10 MG 1 tab qd PRASUGREL 16520770 Active KAYLA ORAL TABLET 04/30 HCL 330 JUSTEN HURLEY MD LISINOPRIL 10 1 by mouth LISINOPRIL 37590303 Active KAYLA MG ORAL every day 02/03 701 JUSTEN TABLET MEI KUO GLIPIZIDE ER TAKE 1 TABLET GLIPIZIDE 50609052 Active KAYLA 5 MG ORAL BY MOUTH 04/12 201 JUSTEN TABLET DAILY MEI KUO EXTENDED RELEASE 24 HOUR METFORMIN HCL TAKE 1 TABLET METFORMIN 50155418 Active KAYLA 1000 MG ORAL BY MOUTH 04/15 HCL 705 JUSTEN TABLET TWICE DAILY MEI KUO ASPIRIN ADULT TAKE 1 TABLET ASPIRIN 92719484 Active KAYLA LOW DOSE 81 BY MOUTH 04/25 501 JUSTEN MG ORAL EVERY DAY MEI KUO TABLET DELAYED RELEASE LISINOPRIL TAKE 1 TABLET LISINOPRIL 82818383 Active KAYLA 2.5 MG ORAL BY MOUTH [...] (calc) Glomerular Filtration rate >60 mL/min >60 [place] urea nitrogen/creatinine ratio, 24.4 ratio serum sodium, serum 137 mmol/L 765-454 5518/10/19 potassium, serum 4.9 mmol/L 3.5-5.1 chloride, serum [...] LDL CHOLESTEROL PROFILE, GLYC ... - Chemistry alanine aminotransferase (SGPT), 38 U/L 12-78 serum cholesterol, serum 127 mg/dL <200 triglyceride, serum, fasting 92 mg/dL <150 HDL cholesterol, serum 49 mg/dL >40 LDL cholesterol, serum 60 mg/dL < 100 hemoglobin A1C, blood, as % of 7.2 % 4.2-6.3 total hemoglobin Estimated Average Glucose 160 mg/dL urea nitrogen, blood 19 mg/dL 7-18 creatinine, serum 0.9 mg/dL 0.6-1.3 Estimated Glomerular Filtration >60 mL/min mL/min/1.73m2 > 60 Rate (calc) Glomerular Filtration rate >60 mL/min >60 [place] urea nitrogen/creatinine ratio, 21.1 ratio serum blood glucose, random 129 mg/dL 74-106 sodium, serum 141 mmol/L 051-124 1428/06/22 potassium, serum 4.9 mmol/L 3.5-5.1 chloride, serum 104 mmol/L 98-107 carbon dioxide, venous blood 32 mmol/L 21-32 anion gap, serum 5 mEq/L 8-16 calcium, serum 9.0 mg/dL 8.5-10.1 protein, total, serum 7.9 g/dL 6.4-8.2 albumin, serum 4.2 g/dL 3.4-5.0 globulins, serum, total 3.7 g/dL 1.9-4.3 albumin/globulin ratio, serum 1.1 ratio aspartate aminotransferase (SGOT), 22 U/L 15-37 serum Lab Report: GLYCOHEMOGLOBIN A1C - Chemistry hemoglobin A1C, blood, as % of total hemoglobin 7.3 % 4.2-6.3 Estimated Average Glucose 163 mg/dL Lab Report: GLYCOHEMOGLOBIN A1C, COMPREHENSIVE METABOLIC PANEL, LDL CHOL ... - Chemistry creatinine, serum 0.9 mg/dL 0.6-1.3 urea nitrogen, blood 19 mg/dL 7-18 blood glucose, random 151 mg/dL 74-106 Estimated Average Glucose 171 mg/dL hemoglobin A1C, blood, as % of 7.6 % 4.2-6.3 total hemoglobin sodium, serum 141 mmol/L 869-706 3959/03/07 urea nitrogen/creatinine ratio, 21.1 ratio serum Glomerular Filtration rate >60 mL/min >60 [place] Estimated Glomerular Filtration >60 mL/min mL/min/1.73m2 > 60 Rate (calc) potassium, serum 4.5 mmol/L 3.5-5.1 chloride, serum [...] 20.0 Encounters Code Encounter Date Provider Facility CPT-01081 Ofc Vst, Est Level III [facility] 13:01:29 EDT CPT-75890 Ofc Vst, Est Level III [facility] 10:23:32 EDT CPT-55151 Ofc Vst, Est Level III [facility] 10:34:08 EST CPT-28130 Ofc Vst, Est Level III [facility] 11:49:44 EST CPT-74335 Ofc Vst, Est Level III [facility] 13:49:23 EDT CPT-27432 Ofc Vst, Est Level III [facility] 10:49:23 EDT CPT-22199 Ofc Vst, Est Level III [facility] 10:01:18 EDT CPT-67233 Ofc Vst, Est Level III [facility] 15:01:52 EST CPT-17129 Ofc Vst, Est Level III [facility] 11:14:31 EST CPT-49871 Ofc Vst, Est Level III [facility] 11:51:18 EST CPT-11710 Ofc Vst, Est Level III [facility] 15:57:42 EST CPT-77766 Ofc Vst, Est Level III [facility] 16:31:34 EDT CPT-42158 Ofc Vst, New Level III ROLANDA GUERRA [facility] 13:17:51 EDT Procedures Code Procedure Name Date Entry Date Standard Description CPT-65769 Venipuncture 11:37:22 EDT CPT-81318 Venipuncture 12:52:56 EDT CPT-40745 Venipuncture 11:49:42 EST CPT-29948 Venipuncture 10:49:22 EDT CPT-97671 Venipuncture 12:32:20 EDT CPT-76334 Venipuncture 20:26:49 EST
--- OUTSIDE RECORDS SUMMARY | 2017-08-01 09:26 | XMS REPORT ---
:1960 External Reference #:[id number] Author Organization [facility] Address [address] [address] Phone [phone] Care Team Providers Name Role Phone Marlyn Chilel MD Care Team Information Supervisor Paper Coating Unavailable Marlyn Chilel MD Primary Care Physician Unavailable Payers Type Date Identification Numbers Payment Provider Subscriber Commercial Policy Number: [id number] [employer] Blu Mercer PayID: [id number] [address] [address] [place] [address] [employer]ig[employer] Part B Expires: 2017 Policy Number: [employer] Blu Mercer [id number] PayID: [id number] [address] [place] [address] [employer] Part B Expires: 2016 Policy Number: [id number] [facility] Jenna Mercer Group Number: [id number] [address] [place] [address] Problems Date Description Provider Status Onset: 06/21/2017 Bilateral carpal tunnel syndrome Dave Phillips MD Active Onset: 06/21/2017 Ganglion cyst of left wrist Dave Phillips MD Active Onset: 04/28/2016 Acute subendocardial infarction Richard Torres MD, [facility] , Active [facility] Family History Date Family Member(s) Problem(s) Comments General Aneurysm General Leukemia General Hypertension General Hypercholesterolemia General Prostate Cancer General Diabetes Type II General Coronary Artery Disease (CAD) Father Leukemia Father due to Motor Vehicle Accident () Mother Aneurysm Mother due to Aneurysm () Social History Type Date Description Comments Marital Status Lives With Lives With Son Occupation [employer] Cigarette Use Former Cigarette Smoker ETOH Use Denies alcohol use Smoking Patient is a former smoker Recreational Drug Use Denies Drug Use Daily Caffeine Consumes on average 5 cups of regular coffee per day Exercise Type/Frequency Exercises regularly Allergies, Adverse Reactions, Alerts Date Description Reaction Status Severity Comments 04/09/2016 Penicillins active Medications Medication Date Status Form Strength Qnty SIG Indications Ordering Provider Metformin HCL Active Tablets 1000mg 1 po bid Unknown 000 Aspirin Ec Low Active Tablets DR 81mg 1 po Unknown Dose 000 qday Calcium 600+D Active Tablets 600-400mg- 60tabs 1 by Unknown High Potency 000 Unit mouth twice a day Atorvastatin Active Tablets 80mg 90tabs 1 by Richard Patino Calcium 000 mouth Sodums, every , [facility], day [facility] Lisinopril Active Tablets 10mg 90tabs 1 by Richard Ellison. 000 mouth Sodums, every VIVIAN KUO, day 12.5 [facility] mg total Effient Active Tablets 10mg 90tabs 1 by Richard Ellison. 000 mouth Sodums, every MARTHA KUO, day [facility] Metoprolol Active Tablets ER 50mg 90tabs 1 by Richard Patino Succinate ER 000 24HR mouth Sodums, every VIVIAN KUO, day [facility] Nitrostat Active Tablets 0.4mg one sl Unknown 000 Sub q5min up to 3 doses as needed Glipizide XL Active Tablets ER 5mg 1 by Unknown 000 24HR mouth every day Ibuprofen Active Tablets 800mg by mouth Unknown 000 three times a day as needed Hydrocodone-Bhanu Active Tablets 5-325mg 2 tabs Unknown taminophen 000 by mouth every 4- 6 hours as needed pain Lisinopril Active Tablets 2.5mg 1 by Unknown 000 mouth every day 12.5 mg total Hydrocodone-Bhanu Hx Tablets 5-325mg Unknown taminophen 000 - 016 Meloxicam Hx Tablets 7.5mg 1 po Unknown 000 - qday 016 Metformin HCL Hx Tablets 500mg 1 po Unknown 000 - qday 08/25/2 016 Medications Administered in Office Medication Date Status Form Strength Qnty SIG Indications Ordering Provider Depomedmonica Administered Injection Migel M 40MG 016 MD René Vital Signs Date Vital Result Comment 07/04/2017 Height 70 inches 5'10" Weight 186.00 lb w/ shoes Heart Rate 68 /min BP Systolic Sitting [address] cuff BP Diastolic Sitting 80 [address] cuff BP Systolic Standing [address] cuff BP Diastolic Standing [address] cuff Respiratory Rate 18 /min BMI (Body Mass Index) 26.7 kg/m2 06/21/2017 Height 70 inches 5'10" Weight 177.00 lb Heart Rate 76 /min BP Systolic Sitting 128 mmHg BP Diastolic Sitting 72 mmHg Respiratory Rate 16 /min Pain Level 6 BMI (Body Mass Index) 25.4 kg/m2 11/17/2016 Height 70 inches 5'10" Weight 183.00 lb w/ shoes Heart Rate 62 /min reg BP Systolic Sitting 140 mmHg Lue, reg cuff BP Diastolic Sitting 86 mmHg Lue, reg cuff Respiratory Rate 16 /min BMI (Body Mass Index) 26.3 kg/m2 Ejection Fraction 50% as of 04/2016 cath 07/19/2016 Height 70 inches 5'10" Weight 181.00 lb Heart Rate 66 /min 68 BP Systolic Sitting 110 mmHg right arm, reg cuff BP Diastolic Sitting 70 mmHg right arm, reg cuff BP Systolic Standing 102 mmHg right arm, reg cuff BP Diastolic Standing 70 mmHg right arm, reg cuff Respiratory Rate 20 /min BMI (Body Mass Index) 26.0 kg/m2 Ejection Fraction 50% 04/16/16 Cath 04/28/2016 Height 70 inches 5'10" Weight 173.00 lb Heart Rate 62 /min 70 BP Systolic Sitting 106 mmHg right arm, reg cuff BP Diastolic Sitting 68 mmHg right arm, reg cuff BP Systolic Standing 104 mmHg right arm, reg cuff BP Diastolic Standing 68 mmHg right arm, reg cuff Respiratory Rate 20 /min BMI (Body Mass Index) 24.8 kg/m2 Ejection Fraction 50% 04/16/16 Cath 04/09/2016 Height 70 inches 5'10" Weight 175.00 lb Heart Rate 54 /min BP Systolic 130 mmHg BP Diastolic 70 mmHg BMI (Body Mass Index) 25.1 kg/m2 Results Description No Information Procedures Date CPT Code Description Status 07/04/2017 66794 EKG Tracing & Interpretation Completed 11/17/2016 16635 EKG Tracing & Interpretation Completed 04/28/2016 26166 EKG Tracing & Interpretation Completed 04/21/2016 25856 EKG, Interpretation Only Completed 04/20/2016 07893 EKG, Interpretation Only Completed 04/19/2016 69694 Left Heart Cath. Incl S/I Coronaries, Angio S/I V Gram Completed If Done 04/19/2016 76984 EKG, Interpretation Only Completed 04/19/2016 71935 Revascularization Acute Total/Subtotal Occlusion Completed 04/09/2016 45567 Inject/Drain Joint/Bursa Major Completed Encounters Type Date Location Provider CPT E/M Dx Office Visit 06/21/2017 [place] [address] M67.432 8:30a Of [facility] [place] G56.03 Office Visit 07/19/2016 9:20a [facility] Richard Torres, [address]695 I21.4 [facility] [place] [facility] [place], FSCAI R31.0 Office Visit 04/28/2016 11:20a [facility] Richard Torres, [address]8485 I21.4 Vehicle Modification Techn[facility] [place] [facility] [place], FSCAI E11.9 R31.0 Office Visit 04/22/2016 9:33a [facility] Richard Torres, 60851 I21.4 Vehicle Modification Technician [place] [facility] [place], FSCAI Office Visit 04/20/2016 1:08p [facility] Richard Torres, [address] I21.4 Vehicle Modification Technician [place] [facility] [place], FSCAI I10 E11.9 Office Visit 04/19/2016 9:53a [facility] Richard Torres, 10628 I21.4 Vehicle Modification Techn[facility] [place] [facility] [place], FSCAI Office Visit 04/09/2016 10:00a [facility] [place] [address] M17.12 [facility] Techn[facility] At [place] M17.11 Plan of Care Future Appointment(s):07/21/2017 9:30 am - Dave Phillips MD at [facility]07/04/2017 - Richard Torres MD, FACJuno, ESNOXO81.4 Non-St elevation (Nstemi) myocardial infarctionNew Orders:Stress Test, Exercise NuclearComments:Hold Metoprolol the morning of stress testFollow up:after testing
== END 2017-07-29 22:04 | disposition short-term general hospital (02) ==
LOC: ED 14:55
DX: R31.0 Gross hematuria (principal); R31.9 Hematuria, unspecified; R30.0 Dysuria; R10.9 Unspecified abdominal pain; Z87.891 Personal history of nicotine dependence
CPT/HCPCS: 36415; 74177; 80053; 81003; 85025; 85610; 85730; 99283; Q9967

== ENCOUNTER 2018-03-02 09:00 | Emergency (ER) | payer BC ==
--- NOTE | 2018-03-02 09:39 | UC ---
Dizzy HPI HPI Summary: 57 year old with multiple comorbidities including previous NE and uncontrolled diabetes presents with worsening fatigue, dizzyness. Had neobladder done January 02. Edge taken out February 01. Has not been moving much, fatigue, SOB, chest congestion, orthostatic hypotensive episodes. Does have productive cough, clear sputum. [ End ] In center he is diaphoretic and hypotensive. Needs higher level of care and to go to ED by ambulance . - History Of Current Complaint Stated Complaint: SOB/DIZZY/CONGESTION*1WEEK Time Seen by Provider: 03/02/18 09:35 Hx Obtained From: Patient, Family/Spring Former Onset/Duration: Sudden Onset Timing: Constant - Allergies/Home Medications Allergies/Adverse Reactions: Allergies Allergy/AdvReac Type Severity Reaction Status Date / Time Penicillins Allergy Hives Verified 03/02/18 09:22 PMH/Surg Hx/FS Hx/Imm Hx Previously Healthy: Yes Endocrine History: Diabetes, Dyslipidemia Cardiovascular History: Cardiac Disease, Hypertension, Myocardial Infarction - Surgical History Surgical History: Yes Surgery Procedure, Year, and Place: CARDIAC STENTS 2015 - Social History Lives: With Family Alcohol Use: Rare Alcohol Amount: GLASS OF WINE Substance Use Type: None Smoking Status (MU): Former Smoker Type: Cigarettes Amount Used/How Often: 1PPD Have You Smoked in the Last Year: No When Did the Patient Quit Smoking/Using Tobacco: 2014 Household Exposure Type: Cigarettes - Immunization History Most Recent Influenza Vaccination: none Most Recent Tetanus Shot: unknown Most Recent Pneumonia Vaccination: none Review of Systems Constitutional: Fatigue Neurological: Weakness, Other - dizziness Is Patient Immunocompromised?: No All Other Systems Reviewed And Are Negative: Yes Physical Exam Triage Information Reviewed: Yes Appearance: No Pain Distress, Well-Nourished, Ill-Appearing - diapohoretic and pale Vital Signs Reviewed: Yes Eyes: Positive: Conjunctiva Clear ENT: Positive: Hearing grossly normal Dental Exam: Normal Neck: Positive: 1 Respiratory: Positive: No respiratory distress Neurological: Positive: Alert Psychological: Positive: Normal Response To Family Skin Exam: Normal Diagnostics - EKG Cardiac Rate: NL Dizzy Course/Dx - Course Course Of Treatment: Go to ED at this time. By ambulance. Spoke with Kian in ED at [place] [facility]. Will accept pt . BS 178. IV placed - Differential Dx/Diagnosis Provider Diagnoses: hypotension. dizziness Discharge - Sign-Out/Discharge Documenting (check all that apply): Patient Departure - to ED - Discharge Plan Condition: Guarded Disposition: TRANS HIGHER LVL OF CARE FAC Patient Education Materials: Hypotension (ED) Referrals: Marlyn Chilel MD [Primary Care Provider] - 1 Day Additional Instructions: Going to ED by ambulance - Billing Disposition and Condition Condition: GUARDED Disposition: Trans Higher Lvl of Care Fac
[2018-03-02 09:40] VITALS: BP 68/35
[2018-03-02] MEDS ORDERED: NS 0.9% 1000 ML* 1,000 ML BOLUS SCH (10:00)
== END 2018-03-02 09:50 | disposition short-term general hospital (02) ==
LOC: UCCORT 09:00
DX: I95.9 Hypotension, unspecified (principal); R42 Dizziness and giddiness; Z88.0 Allergy status to penicillin; I25.2 Old myocardial infarction; E11.9 Type 2 diabetes mellitus without complications; I10 Essential (primary) hypertension; Z87.891 Personal history of nicotine dependence
CPT/HCPCS: 93005; 96360; 99213; G0463

== ENCOUNTER 2023-10-20 11:00 | Observation (INO) ==
[2023-11-21] MEDS ORDERED: fentaNYL 100 mcg/2 ml 50 MCG/ML VIAL IV PRN (09:56)
[2023-11-21] MEDS ORDERED: Metoclopramide 5 MG/ML VIAL (10 mg) IV PRN (09:56)
[2023-11-21] MEDS ORDERED: Naloxone 0.4 mg VIAL 0.4 mg/ml 1 ml VIAL IV PRN (09:56)
[2023-11-21] MEDS ORDERED: Ondansetron 4 mg VIAL 2 MG/ML 2 ml VIAL IV PRN (09:56)
[2023-11-21] MEDS ORDERED: NS 0.45% 1000 ml BAG 1,000 ML IV SCH (10:00)
[2023-11-22] MEDS ORDERED: Tranexamic Acid 1 GM/100ML BAG 2,000 MG/200 ML BAG IV ONE (09:28)
[2023-11-22] MEDS ORDERED: ceFAZolin 2 GM PREMIX 2 GM/50 ML BAG ONE (09:28)
[2023-11-22] MEDS ORDERED: Scopolamine 1 mg/72hr PATCH ONE (09:28)
[2023-11-22] MEDS: Scopolamine 1 mg/72hr PATCH TRANSDERM ONE (09:55)
[2023-11-22 09:57] LABS: Rapid COVID-19 Molecular Undetected (Undetected)
[2023-11-22] MEDS ORDERED: ROPIVACAINE 5 MG/ML 30 ML BTL (0.5%) ONE ×2 (10:34→10:48)
[2023-11-22] MEDS ORDERED: Midazolam 2 mg/2 ml VIAL 1 mg/ml 2 ml VIAL (2 mg) ONE (10:48)
[2023-11-22] MEDS ORDERED: fentaNYL 100 mcg/2 ml 50 MCG/ML VIAL ONE (10:48)
[2023-11-22] MEDS ORDERED: Lactulose 30 ml UDC PO PRN (12:09)
[2023-11-22] MEDS ORDERED: Ondansetron 4 mg VIAL 2 MG/ML 2 ml VIAL IV PRN (12:09)
[2023-11-22] MEDS ORDERED: Ondansetron ODT 4 mg TAB 4 MG TAB PO PRN (12:09)
[2023-11-22] MEDS ORDERED: Magnesium Hydroxide LIQ 30 ML UDC PO PRN (12:09)
[2023-11-22] MEDS ORDERED: Morphine 2 MG/ML SYRINGE IV PRN (12:09)
[2023-11-22] MEDS: Lactated Ringers 1000 ml BAG 1,000 ML IV SCH ×2 (16:05→17:08)
[2023-11-22] MEDS: Acetaminophen IV 1 GM/100ML 1,000 MG/100 ML BAG IV ONE (17:07)
[2023-11-22] MEDS: Buffered Lidocaine 1% SYRIN 1 ml INTRADERM ONE (17:08)
[2023-11-22] MEDS: Magnesium Hydroxide LIQ 30 ML UDC PO SCH (21:23)
[2023-11-22] MEDS: ceFAZolin 1 GM ADVAN 1 GM in NS 0.9% 50 ML 50 ML IVPB SCH (21:26)
[2023-11-23 06:31] LABS: Hematocrit 35.6 % (38-53); Hemoglobin 11.6 g/dL (13.2-16.3); Mean Platelet Volume 8.9 fL (7.5-11.2); Platelet Count 247 10^3/uL (150-450)
[2023-11-23 07:01] LABS: Calcium 8.6 mg/dL (8.6-10.3); Creatinine, Serum 1.28 mg/dL (0.67-1.17); Potassium 4.5 mmol/L (3.5-5.0); eGFR CKD-EPI 62.9 (>60)
[2023-11-23] MEDS: Vitamin THERAPEUTIC TAB PO SCH (08:53)
[2023-11-23 13:19] VITALS: BP 132/67
[2023-11-23] MEDS ORDERED: ROSUVASTATIN 20 MG PO SCH (21:00)
== END 2023-11-23 13:07 | disposition home or self-care (01) ==
LOC: AA 11-22 08:48 → INTOOBSV 11-22 08:48 → SSU 11-22 15:35
PROVIDERS: ADMIT Orthopaedic Surgery Adult Reconstructive Orthopaedic Surgery; ATTEND Orthopaedic Surgery Adult Reconstructive Orthopaedic Surgery